=== PATIENT | male | born 1990 | race Two or more races ===

== ENCOUNTER 2020-03-01 16:37 | Outpatient (CLI) | payer OTHER | END 2020-03-01 16:38 | disposition home or self-care (01) | LOC: RAD 16:37 | PROVIDERS: ATTEND Internal Medicine Cardiovascular Disease | DX: J44.9 Chronic obstructive pulmonary disease, unspecified (principal) ==

== ENCOUNTER 2022-12-28 10:29 | Emergency (ER) | payer OTHER ==
[~2022-12-28] VITALS: Ht 182.9 cm; Wt 113.4 kg
== END 2022-12-28 11:23 | disposition home or self-care (01) ==
LOC: ER 10:29
DX: I83.899 Varicose veins of unspecified lower extremity with other complications (principal)